=== PATIENT | female | born 1990 | race African-American/Black ===

== ENCOUNTER 2017-02-04 16:18 | Emergency (ER) | payer OTHER ==
[~2017-02-04] VITALS: Ht 149.9 cm; Wt 47.7 kg
[2017-02-04 17:20] LABS: HEMATOCRIT 35.3 % (36.0-46.0); MCH 22.6 PG (29.0-34.0); MCHC 32.9 G/DL (30.0-36.0); MCV 68.7 FL (83-99); MEAN PLAT.VOLUME 10.1 uM^3 (9.5-12.4); PLATELET COUNT 412 K/uL (156-360); RBC DIS.WIDTH-CV 15.5 % (11.8-14.6); RBC DIS.WIDTH-SD 37.7 % (39-53); RED BLOOD COUNT 5.14 M/uL (3.80-5.20); WHITE BLOOD COUNT 9.7 K/uL (4.1-10.2)
[2017-02-04 17:23] LABS: CHLORIDE 103 mEq/L (99-109); POTASSIUM 4.2 mEq/L (3.7-5.4); SODIUM 135 mEq/L (136-147)
[2017-02-04 17:26] LABS: GLUCOSE 101 mg/dL (70-99)
[2017-02-04 17:27] LABS: ANION GAP 11 MEQ/L (2-14)
[2017-02-04 17:28] LABS: TOTAL BILIRUBIN 0.7 mg/dL (0.0-1.0)
[2017-02-04 17:29] LABS: ALKALINE PHOSPHATASE 72 IU/L (3-129); GFR ESTIMATE (CALCULATED) > 59 mL/min/
[2017-02-04 17:30] LABS: UREA NITROGEN (BUN) 13 mg/dL (9-23)
[2017-02-04 17:33] LABS: LIPASE 51 U/L (1.0-51.0)
[2017-02-04 17:41] LABS: QUANTITATIVE HCG < 4.0 MIU/ML
[2017-02-04 21:36] LABS: ADD MIUA? YES; BILIRUBIN NEGATIVE; BLOOD NEGATIVE; COLOR YELLOW ((YELLOW)); GLUCOSE (STRIP) NEGATIVE; KETONES 20; LEUKOCYTES LARGE; NITRITE NEGATIVE; PROTEIN (STRIP) NEGATIVE; SPECIFIC GRAVITY 1.034 (1.000-1.030); UROBILINOGEN 0.2 MG/DL (0.2-1.0)
[2017-02-04 22:03] LABS: BACTERIA NONE SEEN /HPF; EPITHELIAL CELLS 1+ /HPF; MUCUS NONE SEEN /LPF; RED BLOOD CELLS 0-5 /HPF (0-5); UCUL ADDED? YES; WHITE BLOOD CELLS TNTC /HPF (0-5)
[2017-02-04] MEDS ORDERED: DETROL LA4 MG PO (23:36)
[2017-02-04] MEDS ORDERED: VITAMIN C1000 MG PO (23:38)
[2017-02-05 00:32] VITALS: BP 114/76
== END 2017-02-05 00:33 | disposition short-term general hospital (02) ==
LOC: EME 16:18
PROVIDERS: Physician Assistant
DX: R51 Headache (principal); G91.9 Hydrocephalus, unspecified; R10.9 Unspecified abdominal pain; R50.9 Fever, unspecified; G82.20 Paraplegia, unspecified; Z98.2 Presence of cerebrospinal fluid drainage device
CPT/HCPCS: 70450; 71020; 74177; 80053; 81003; 83605; 83690; 84702; 85027; 87040; 87077; 87086; 87186; 99281; 99285; J1885